=== PATIENT | female | born 1945 | race Caucasian/White ===

== ENCOUNTER 2019-08-16 14:47 | Emergency (ER) | payer MEDICARE ==
[2019-08-16] MEDS ORDERED: Ondansetron 4 MG/2 ML SDV IVPUSH ONE (14:56)
[2019-08-16] MEDS ORDERED: Pantoprazole 40 MG Vial IVPUSH ONE (14:56)
[2019-08-16] MEDS ORDERED: Dextrose 5%-0.9% NaCl 1,000 ML IV SCH (15:00)
--- NOTE | 2019-08-16 15:07 | EDM.PDOC ---
ED HPI GENERAL MEDICAL PROBLEM - General Chief Complaint: Respiratory Problem Stated Complaint: [facility] Time Seen by Provider: 08/16/19 14:55 Source of Information: Reports: Patient History Limitations: Reports: Altered Mental Status (appears to have mild to moderate dementia) - History of Present Illness INITIAL COMMENTS - FREE TEXT/NARRATIVE: 73-year-old female presents to the ED per [facility]. Apparently she is been having recurrent/chronic melena stool or dark black tarry stool for several weeks. He is complaining persistently of epigastric pain and inability eat and knows that she is losing weight. The patient is not able to complete a full sentence due to impaired thought processes and appears to be exhibiting signs and symptoms of early dementia. She is extremely thin from malnutrition and/or concern for possible cancer. States that eating causes epigastric pain and right upper quadrant abdominal pain. Not sure about bowel function. She denies any problems with incontinence of urine. At present she is coughing and is bringing up some yellow-green sputum. Patient denies any hemoptysis. She is febrile at the time of initial assessment in the ED. She used to smoke cigarettes but has not for many years. She did recognize that she is more short of breath on minimal exertion than usual. Paramedics indicate that it looks like she has had melena stool for a lengthy period of time by the looks of the bathroom. Apparently she has been taking Naprosyn 2 tablets in the morning and 2 at bedtime for a lengthy period of time for back pain otherwise she states she cannot walk. Therefore this is likely the cause of her upper GI bleeding and melena stool. Onset: Unknown/Unsure (Is that she has been having melena stool for a couple of weeks off and on.) Onset Date: 08/16/19 (Believes she started to have a fever today but has been coughing for the last 4 days. Cough is becoming more productive with yellow- greenish color) Duration: Day(s):, Getting Worse Location: Reports: Chest, Other (Differential sounding cough yellow-greenish sputum. Again seems to have neurological impairment able to complete a sentence and seems to confabulate information at times. There is no history of previous stroke.) Quality: Reports: Other (Fever chills) Severity: Severe (complete loss of appetite) Improves with: Reports: None Worsens with: Reports: Movement (Appreciates increased shortness of breath on minimal exertion.) Context: Reports: Other. Denies: Activity, Exercise, Lifting, Sick Contact, Trauma Associated Symptoms: Reports: Confusion (Patient cannot finish a sentence. She has difficulty answering questions. She appears to confabulate answers at times.), Cough ( green in color), cough w sputum (Tenuous occurrence), Fever/ Chills (Patient is febrile upon arrival in the ED 38.1.), Headaches, Loss of Appetite, Malaise (Several weeks.), Nausea/Vomiting, Shortness of Breath, Weakness (Nausea but no vomiting. Generalized weakness). 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 (see below) - Related Data Allergies Allergy/AdvReac Type Severity Reaction Status Date / Time Penicillins Allergy Intermediate Facial Verified 08/16/19 14:55 Swelling cephalexin [From Keflex] Allergy Facial Verified 08/16/19 14:55 Swelling erythromycin base Allergy Itching Verified 08/16/19 14:55 acyclovir AdvReac Hallucinati Verified 08/16/19 14:55 ons morphine AdvReac Nausea and Verified 08/16/19 14:55 Vomiting tramadol AdvReac Hallucinati Verified 08/16/19 14:55 ons Home Meds: Home Meds Naproxen Sodium [Aleve] 440 mg PO ASDIRECTED PRN 01/02/19 [History] Past Medical History Respiratory History: Reports: COPD (Diagnosed. Patient used to smoke cigarettes up until March of last year. She has at least a [id number] history.) Gastrointestinal History: Reports: Chronic Constipation (Laxatives as needed for constipation), Gastritis, PUD (He was told in the past that she has had peptic ulcer disease.) Musculoskeletal History: Reports: Arthritis, Back Pain, Chronic, Osteoarthritis , Osteoporosis, Other (See Below) (Multiple compression fractures in her thoracic spine not treated with kyphoplasty.) Social & Family History - Tobacco Use Smoking Status *Q: Former Smoker Tobacco Use Within Last Twelve Months: Cigarettes (In March 2019. Has at least a 48-uwrq-syal history.) - Alcohol Use Alcohol Use History: No - Recreational Drug Use Recreational Drug Use: No Drug Use in Last 12 Months: No - Living Situation & Occupation Living situation: Reports: , Alone, Other (She has 2 daughters here that are looking in on her.) Occupation: Retired ED ROS GENERAL - Review of Systems Review Of Systems: See Below Constitutional: Reports: Fever, Chills, Malaise, Weakness, Fatigue, Decreased Appetite, Other (And apparently was down to 85 pounds in the summer months after multiple compression fractures in her thoracic spine. With a lot of work family members have been able to get her weight up to 91 pounds. She still remains very thin and frail) HEENT: Reports: Glasses Respiratory: Reports: Shortness of Breath, Wheezing, Cough, Sputum (Developed a cough with fever over the last couple of days.). Denies: Pleuritic Chest Pain, Hemoptysis ( Is greenish in color.) Cardiovascular: Reports: Dyspnea on Exertion (Likely), Lightheadedness. Denies : Chest Pain, Blood Pressure Problem, Claudication, Edema, Orthopnea Endocrine: Reports: Fatigue GI/Abdominal: Reports: Abdominal Pain (Cannot eat for the last several weeks due to upper abdominal pain. Eating creates pain mostly in her right upper quadrant of her abdomen), Constipation, Hematochezia, Melena (Stool for the last 2 days at least. Lying in melena stool today and 1 of the daughters also noted some bright red blood with the melena stool.), Stool Incontinence (Is never happened before.). Denies: Hematemesis : Reports: Frequency, Incontinence (Both stress and urge components.) Musculoskeletal: Reports: Shoulder Pain (Devious fall with fracture of her left humerus requiring total shoulder replacement. This occurred 5 years ago), Back Pain (Back pain from multiple vertebral compression fractures not treated with kyphoplasty.), Other (He is fall with fracture right hip has 3 pins in her right hip.) Skin: Reports: Pallor (Radiation collar.) Neurological: Reports: Confusion, Dizziness (Vision seems to have started within the last 3 to 4 days.), Trouble Speaking (Finish a complete sentence but she has no expressive aphasia but seems to have some degree of confabulation or need to make up for things that she cannot remember. This according to her family is something new as well.), Difficulty Walking (Walk alone.), Weakness. Denies: Headache, Numbness, Syncope, Tingling Psychiatric: Reports: Anxiety (Very concerned that if she gets put to sleep ie esthesia that she will not wake up.) Hematologic/Lymphatic: Reports: Anemia (Has been followed by Dr. Phelan in the past and has required blood transfusions.) Immunologic: Reports: No Symptoms ED EXAM, GENERAL - Physical Exam Exam: See Below Exam Limited By: Altered Mental Status (And is unable to complete a full sentence and seems to have developed short-term memory loss. She really does not have expressive aphasia but I sense a degree of confabulation making up for things that she cannot quite remember. Her family indicates that this is a recent new problem within the last week.) General Appearance: Thin (Extremely thin and appears to be), Other ( suffering malnutrition. Is grayish in color. Vital signs show a temperature of 38.1 with a heart rate of 106 at the bedside respiratory it is 20 with O2 sats of 94 % on room air BP 123/65.) Eye Exam: Bilateral Eye: Normal Inspection (Does have moderate bilateral blepharal pallor.), PERRL Ears: Normal TMs Throat/Mouth: Normal Lips, Other (Lung is mildly dry and coated.) Head: Atraumatic, Normocephalic, Other (Neuro no obvious evidence of traumatic head or facial injuries) Neck: Normal Inspection, Supple, Non-Tender, Full Range of Motion. No: Lymphadenopathy (L), Lymphadenopathy (R), Thyromegaly Respiratory/Chest: No Accessory Muscle Use, Respiratory Distress (Mild tachypnea.), Rhonchi (Rhonchi both posterior lung mckinnon with occasional expiratory wheeze.). No: Lungs Clear, Normal Breath Sounds Cardiovascular: No Edema, No Gallop, No JVD, No Murmur, No Rub, Tachycardia, Irregularly Irregular. No: Regular Rate, Rhythm Peripheral Pulses: 1+: Posterior Tibial (L) (Feet are very cool to touch with some acral cyanosis. Pulses are barely palpable in the dorsalis pedis bilaterally. Clinically she has peripheral vascular disease.), Posterior Tibial (R), Dorsalis Pedis (L), Dorsalis Pedis (R) GI/Abdominal: Normal Bowel Sounds, Soft, Non-Tender, No Organomegaly, No Abnormal Bruit, No Mass, Pelvis Stable, Other (Clear for her appendix was removed at that time he has had 1 ) Rectal (Female) Exam: Black Stool, Heme + Stool. No: Hemorrhoids Back Exam: Vertebral Tenderness (The lumbar spine as well as multiple areas mid thoracic spine. Have a dowagers hump), Other (Kyphosis thoracic spine.) Neurological: Alert, Oriented, CN II-XII Intact, Normal Cognition Psychiatric: Anxious, Other (Fused again not able to complete a full sentence) Skin Exam: Warm ( or finish her thought process.), Dry, Intact, Increased Warmth (Is warm to palpation and is febrile.), Other (There is grayish in color. ). No: Normal Color EKG INTERPRETATION EKG Date: 08/16/19 Time: 15:50 Rhythm: Other (Tachycardia) Rate (Beats/Min): 109 (Occasional PACs appreciated.) [place]: Normal P-Wave: Present QRS: Other (His RSR prime wave in V1 and V2 likely normal variant. There is decreased voltage in both the precordial and limb leads compatible with COPD pattern.) ST-T: Other (Nonspecific T wave flattening in V2 V3 leads.) QT: Prolonged (UTC is mildly prolonged.) EKG Interpretation Comments: Abnormal ECG Course - Vital Signs Last Recorded V/S: Last Vital Signs Temp 38.1 C 08/16/19 14:56 Pulse 106 H 08/16/19 14:56 Resp 20 08/16/19 14:56 BP 123/65 08/16/19 14:56 Pulse Ox 94 L 08/16/19 14:56 - Orders/Labs/Meds Orders: Active Orders 24 hr Category Date Time Status EKG Documentation Completion [RC] STAT Care 08/16/19 14:58 Active Insert [place] Catheter [Insert Urinary Catheter] [OM.PC] Care 08/16/19 16:55 Ordered Q24H Urinary Catheter Assessment [RC] ASDIRECTED Care 08/16/19 16:55 Active CULTURE BLOOD [BC] Stat Lab 08/16/19 15:20 Received CULTURE BLOOD [BC] Stat Lab 08/16/19 15:30 Received Acetaminophen [Tylenol] Med 08/16/19 19:49 Active 650 mg PO Q4H PRN Dextrose 5%-0.9% NaCl [Dextrose 5%-Normal Saline] 1,000 Med 08/16/19 15:00 Active ml IV ASDIRECTED Sodium Chloride 0.9% [Normal Saline] 1,000 ml Med 08/16/19 20:15 Active IV ASDIRECTED Sodium Chloride 0.9% [Saline Flush] Med 08/16/19 17:38 Active 10 ml FLUSH ONETIME PRN Blood Culture x2 Reflex Set [OM.PC] Stat Oth 08/16/19 14:59 Ordered Medication Orders Acetaminophen (Tylenol) 650 mg PO Q4H PRN PRN Reason: Pain Dextrose/Sodium Chloride (Dextrose 5%-Normal Saline) 1,000 mls @ 999 mls/hr IV ASDIRECTED [facility] Last Admin: 08/16/19 15:37 Dose: 999 mls/hr Sodium Chloride (Normal Saline) 1,000 mls @ 999 mls/hr IV ASDIRECTED [facility] Last Admin: 08/16/19 20:26 Dose: 999 mls/hr Sodium Chloride (Saline Flush) 10 ml FLUSH ONETIME PRN PRN Reason: Keep Vein Open Last Admin: 08/16/19 17:42 Dose: 10 ml Labs: Laboratory Tests 08/16/19 08/16/19 08/16/19 Range/Units 15:20 15:20 15:20 WBC 25.61 H (3.98-10.04) K/mm3 RBC 3.86 L (3.98-5.22) M/mm3 Hgb 12.3 (11.2-15.7) gm/dl Hct 37.8 (34.1-44.9) % MCV 97.9 H (79.4-94.8) fl MCH 31.9 (25.6-32.2) pg MCHC 32.5 (32.2-35.5) g/dl RDW Std Deviation 47.5 H (36.4-46.3) fL Plt Count 311 (182-369) K/mm3 MPV 9.2 L (9.4-12.3) fl Neutrophils % (Manual) 82 H (40-60) % Band Neutrophils % 8 (0-10) % Lymphocytes % (Manual) 3 L (20-40) % Atypical Lymphs % 0 % Monocytes % (Manual) 7 (2-10) % Eosinophils % (Manual) 0 L (0.7-5.8) % Basophils % (Manual) 0 L (0.1-1.2) Platelet Estimate Adequate RBC Morph Comment Normal ESR (0-20) mm/hr PT 11.9 (9.7-12.0) SECONDS INR 1.10 APTT 30 (22-31) SECONDS Sodium 139 (136-145) mEq/L Potassium 3.6 (3.5-5.1) mEq/L Chloride 103 (98-107) mEq/L Carbon Dioxide 21 (21-32) mEq/L Anion Gap 18.6 H (5-15) BUN 28 H (7-18) mg/dL Creatinine 0.7 (0.55-1.02) mg/dL Est Cr Clr Drug Dosing TNP Estimated GFR (MDRD) > 60 (>60) mL/min BUN/Creatinine Ratio 40.0 H (14-18) Glucose 107 (83-115) mg/dL Lactic Acid (0.4-2.0) mmol/L Calcium 8.8 (8.5-10.1) mg/dL Magnesium 1.6 L (1.8-2.4) mg/dl Total Bilirubin 1.1 H (0.2-1.0) mg/dL GGT 7 (5-55) U/L AST 18 (15-37) U/L ALT 17 (14-59) U/L Alkaline Phosphatase 65 (46-116) U/L Troponin I < 0.017 (0.00-0.056) ng/mL C-Reactive Protein 24.5 H* (<1.0) mg/dL NT-Pro-B Natriuret Pep (0-125) pg/mL Total Protein 7.0 (6.4-8.2) g/dl Albumin 3.3 L (3.4-5.0) g/dl Globulin 3.7 gm/dL Albumin/Globulin Ratio 0.9 L (1-2) Urine Color (Yellow) Urine Appearance (Clear) Urine pH (5.0-8.0) Ur Specific [place] (1.005-1.030) Urine Protein (Negative) Urine Glucose (UA) (Negative) Urine Ketones (Negative) Urine Occult Blood (Negative) Urine Nitrite (Negative) Urine Bilirubin (Negative) Urine Urobilinogen (0.2-1.0) Ur Leukocyte Esterase (Negative) Urine RBC (0-5) /hpf Urine WBC (0-5) /hpf Ur Squamous Epith Cells (0-5) /hpf Urine Bacteria (FEW) /hpf Urine Mucus (FEW) /hpf Blood Type Gel Antibody Screen 08/16/19 08/16/19 08/16/19 Range/Units 15:20 15:20 15:20 WBC (3.98-10.04) K/mm3 RBC (3.98-5.22) M/mm3 Hgb (11.2-15.7) gm/dl Hct (34.1-44.9) % MCV (79.4-94.8) fl MCH (25.6-32.2) pg MCHC (32.2-35.5) g/dl RDW Std Deviation (36.4-46.3) fL Plt Count (182-369) K/mm3 MPV (9.4-12.3) fl Neutrophils % (Manual) (40-60) % Band Neutrophils % (0-10) % Lymphocytes % (Manual) (20-40) % Atypical Lymphs % % Monocytes % (Manual) (2-10) % Eosinophils % (Manual) (0.7-5.8) % Basophils % (Manual) (0.1-1.2) Platelet Estimate RBC Morph Comment ESR 51 H (0-20) mm/hr PT (9.7-12.0) SECONDS INR APTT (22-31) SECONDS Sodium (136-145) mEq/L Potassium (3.5-5.1) mEq/L Chloride (98-107) mEq/L Carbon Dioxide (21-32) mEq/L Anion Gap (5-15) BUN (7-18) mg/dL Creatinine (0.55-1.02) mg/dL Est Cr Clr Drug Dosing Estimated GFR (MDRD) (>60) mL/min BUN/Creatinine Ratio (14-18) Glucose (83-115) mg/dL Lactic Acid 1.6 (0.4-2.0) mmol/L Calcium (8.5-10.1) mg/dL Magnesium (1.8-2.4) mg/dl Total Bilirubin (0.2-1.0) mg/dL GGT (5-55) U/L AST (15-37) U/L ALT (14-59) U/L Alkaline Phosphatase (46-116) U/L Troponin I (0.00-0.056) ng/mL C-Reactive Protein (<1.0) mg/dL NT-Pro-B Natriuret Pep 1318 H (0-125) pg/mL Total Protein (6.4-8.2) g/dl Albumin (3.4-5.0) g/dl Globulin gm/dL Albumin/Globulin Ratio (1-2) Urine Color (Yellow) Urine Appearance (Clear) Urine pH (5.0-8.0) Ur Specific [place] (1.005-1.030) Urine Protein (Negative) Urine Glucose (UA) (Negative) Urine Ketones (Negative) Urine Occult Blood (Negative) Urine Nitrite (Negative) Urine Bilirubin (Negative) Urine Urobilinogen (0.2-1.0) Ur Leukocyte Esterase (Negative) Urine RBC (0-5) /hpf Urine WBC (0-5) /hpf Ur Squamous Epith Cells (0-5) /hpf Urine Bacteria (FEW) /hpf Urine Mucus (FEW) /hpf Blood Type Gel Antibody Screen 08/16/19 08/16/19 Range/Units 15:20 17:00 WBC (3.98-10.04) K/mm3 RBC (3.98-5.22) M/mm3 Hgb (11.2-15.7) gm/dl Hct (34.1-44.9) % MCV (79.4-94.8) fl MCH (25.6-32.2) pg MCHC (32.2-35.5) g/dl RDW Std Deviation (36.4-46.3) fL Plt Count (182-369) K/mm3 MPV (9.4-12.3) fl Neutrophils % (Manual) (40-60) % Band Neutrophils % (0-10) % Lymphocytes % (Manual) (20-40) % Atypical Lymphs % % Monocytes % (Manual) (2-10) % Eosinophils % (Manual) (0.7-5.8) % Basophils % (Manual) (0.1-1.2) Platelet Estimate RBC Morph Comment ESR (0-20) mm/hr PT (9.7-12.0) SECONDS INR APTT (22-31) SECONDS Sodium (136-145) mEq/L Potassium (3.5-5.1) mEq/L Chloride (98-107) mEq/L Carbon Dioxide (21-32) mEq/L Anion Gap (5-15) BUN (7-18) mg/dL Creatinine (0.55-1.02) mg/dL Est Cr Clr Drug Dosing Estimated GFR (MDRD) (>60) mL/min BUN/Creatinine Ratio (14-18) Glucose (83-115) mg/dL Lactic Acid (0.4-2.0) mmol/L Calcium (8.5-10.1) mg/dL Magnesium (1.8-2.4) mg/dl Total Bilirubin (0.2-1.0) mg/dL GGT (5-55) U/L AST (15-37) U/L ALT (14-59) U/L Alkaline Phosphatase (46-116) U/L Troponin I (0.00-0.056) ng/mL C-Reactive Protein (<1.0) mg/dL NT-Pro-B Natriuret Pep (0-125) pg/mL Total Protein (6.4-8.2) g/dl Albumin (3.4-5.0) g/dl Globulin gm/dL Albumin/Globulin Ratio (1-2) Urine Color Yellow (Yellow) Urine Appearance Clear (Clear) Urine pH 6.0 (5.0-8.0) Ur Specific [place] 1.025 (1.005-1.030) Urine Protein 1+ H (Negative) Urine Glucose (UA) 2+ H (Negative) Urine Ketones Negative (Negative) Urine Occult Blood Negative (Negative) Urine Nitrite Negative (Negative) Urine Bilirubin Negative (Negative) Urine Urobilinogen 1.0 (0.2-1.0) Ur Leukocyte Esterase Negative (Negative) Urine RBC 0-5 (0-5) /hpf Urine WBC 0-5 (0-5) /hpf Ur Squamous Epith Cells 0-5 (0-5) /hpf Urine Bacteria Few (FEW) /hpf Urine Mucus Few (FEW) /hpf Blood Type A POSITIVE Gel Antibody Screen Negative Meds: Medications Generic Name Dose Route Start Last Admin Trade Name Freq PRN Reason Stop Dose Admin Acetaminophen 650 mg 08/16/19 19:49 Tylenol PO Q4H PRN Pain Dextrose/Sodium Chloride 1,000 mls @ 999 mls/hr 08/16/19 15:00 08/16/19 15:37 Dextrose 5%-Normal Saline IV 999 mls/hr ASDIRECTED [facility] Administration Sodium Chloride 1,000 mls @ 999 mls/hr 08/16/19 20:15 08/16/19 20:26 Normal Saline IV 999 mls/hr ASDIRECTED J[facility] Administration Sodium Chloride 10 ml 08/16/19 17:38 08/16/19 17:42 Saline Flush FLUSH 10 ml ONETIME PRN Administration Keep Vein Open Discontinued Medications Generic Name Dose Route Start Last Admin Trade Name Fernandezq PRN Reason Stop Dose Admin Acetaminophen 650 mg 08/16/19 15:41 08/16/19 16:00 Tylenol PO 08/16/19 15:42 Not Given ONETIME ONE Acetaminophen 650 mg 08/16/19 15:59 08/16/19 16:04 Tylenol PO 08/16/19 16:00 650 mg ONETIME ONE Administration Acetaminophen 650 mg 08/16/19 20:34 08/16/19 20:38 Tylenol PO 08/16/19 20:35 650 mg ONETIME ONE Administration Diatrizoate Meglum/Diatrizoate Sod 40 ml 08/16/19 17:42 08/16/19 17:43 Gastrografin 37% PO 08/16/19 17:43 40 ml ONETIME ONE Administration Levofloxacin/Dextrose 750 mg/ 150 mls @ 100 mls/hr 08/16/19 16:17 08/16/19 16 :30 Premix IV 08/16/19 17:46 100 mls/hr ONETIME ONE Administration Iopamidol 100 ml 08/16/19 17:38 08/16/19 17:42 Isovue-300 (61%) IVPUSH 08/16/19 17:39 100 ml ONETIME ONE Administration Ondansetron HCl 4 mg 08/16/19 14:56 08/16/19 15:30 Zofran IVPUSH 08/16/19 14:57 4 mg ONETIME ONE Administration Oseltamivir Phosphate 75 mg 08/16/19 19:48 08/16/19 20:38 Tamiflu PO 08/16/19 19:49 75 mg ONETIME ONE Administration Pantoprazole Sodium 40 mg 08/16/19 14:56 08/16/19 15:34 Protonix Iv IVPUSH 08/16/19 14:57 40 mg ONETIME ONE Administration - Radiology Interpretation Free Text/Narrative:: [place] 3-year-old female brought to the hospital by [facility] at the request of her daughters. They found her lying in melena stool with some bright red blood present. She is altered level of consciousness in terms that she seems to be confused and cannot complete a full sentence due to loss of thought process and seems to have some degree of confabulation. Whether this represents old problems or developing dementia versus acute delirium. She does not have an expressive aphasia. She may be slightly delirious as she her temperature is 102 degrees. Its to a cough that is productive of yellow-greenish sputum. She used to smoke up until March of last year and has known COPD. Does not use home oxygen therapy. Apparently she has been having melena stool off and on for at least 2 to 3 days. She takes Naprosyn 2 tablets morning and night for back pain and likely has a upper GI blood loss site. She has been seen by Dr. Reddy inventory control/shipping receiving in [place] in the past and treated I believe for iron deficiency anemia with iron dextran intravenously and previous blood transfusions. It is unclear of the timeframe of this. At present I am going to do a CT head to make sure that she has not had an intracerebral event or a fall with an occult subdural. A chest x-ray will be done to rule out pneumonia. She cannot eat due to persistent upper abdominal pain concerning for possible malignancy due to the fact that she is very thin. She appears to have have an upper GI bleeding source with melena stool with some bright red blood appreciated today as well by 1 of her daughters. She does appear anemic with blepharal pallor and pallor in her palms of her hands. She will be typed and screened. Septic work-up will be carried out. Given Tylenol in liquid form for fever relief. Zofran 4 mg IV. IV will be D5 normal saline at open. She has not eaten much for the last couple of days. Then attempt a CT of the abdomen and pelvis with oral contrast. It will depend on her renal function as to whether or not we can pursue IV contrast as well. - Re-Assessments/Exams Free Text/Narrative Re-Assessment/Exam: 08/16/19 16:16 The chest x-ray done portably reveals that she has had a Lt total shoulder replacement. She does have hyperinflated lung mckinnon with prominent pulmonary arteries particularly noted on the left side. There are some chronic scarring in the right lung base. Lungs are hyperinflated with COPD emphysema pattern. Cardiac silhouette is normal. A large hiatal hernia evident. She is rotated slightly to the right. 08/16/19 16:18 Hematology is partially back revealing a elevated white count to 25.61. The differential is pending. Hemoglobin is 12.3 with a hematocrit of 37.8. MCV is mildly elevated at 97.9. Platelet count is 311,000. Urine is for developing pneumonia although this is not yet evident on plain films. She is been producing greenish-yellow phlegm and has high fever. Will be treated with Levaquin 750 mg IV as blood cultures x2 have been obtained. Lactic acid is currently 1.6 08/16/19 17:07 Differential l is now back on white count of 25.61. Neutrophil count is 82% with 8% bandemia. Sed rate is 51. PT is 11.9 with an INR of 1.10. PTT is 30. Sodium is 139 with a potassium of 3.6. Chloride 103 with a bicarb of 21. Anion gap is elevated at 18.6. BUN is 28 with a creatinine of 0.7. GFR remains greater than 60. Glucose 107. Lactic acid 1.6. Calcium is 8.8. Magnesium slightly low at 1.6. Bilirubin is slightly elevated at 1.1. Liver function is otherwise normal. Troponin I is less than 0.017. C-reactive protein is elevated at 24.5. BNP elevated at 1318. Total protein is 7.0 with an albumin fraction of 3.3. Awaiting CT of her head and abdomen and pelvis with oral and IV contrast. 08/16/19 17:23 She is influenza B positive. 08/16/19 18:27 CT of the head reveals advanced degenerative changes with markedly dilated lateral ventricles and prominent sulci. There is diffuse small vessel ischemic changes in both basal ganglia without any obvious lacunar infarcts. There is no mass-effect or evidence of metastatic disease. CT of the abdomen reveals mild cardiomegaly. There is a very large hiatal hernia with at least 50% of the stomach in the retrocardiac space. His lung bases show interstitial change within the posterior right lung base most likely representing fibrosis. CT of the abdomen reveals the liver to be within normal limits showing no intraductal dilatation. Gallladder is not well- defined contains no obvious calcified gallstones. Adrenal glands show no nodules. Pancreas within normal limits. Kidneys are present and appear to be normal in size with full small cortical cysts are seen within the kidneys. Delayed images show contrast excretion into the ureters as well as the bladder. There is moderate calcification of the abdominal aorta all the way down to the bifurcation. The small bowel filled fairly well with contrast material and does not show any obvious abnormalities. Retroperitoneal adenopathy noted. No mesenteric abnormalities noted. Mass or adenopathy is seen. Appendix is not visualized with any degree of certainty. Mild diverticulosis is noted within the sigmoid colon without findings of diverticulitis. Bone window settings showed numerous compression fractures these appear to be old. There are 3 cannulated screws noted within the left hip fixing an old healed fracture. There is no free fluid in the pelvis. 08/16/19 20:13 BP has fallen to 73/48 and confirmed on three further attempts . A liter of warmed normal saline intravenously bolus. 08/16/19 21:06 due to 500 mL normal saline bolus and BP improved to the 89/49. Reports her blood pressure usually is 95-100 systolic. Will continue IV normal saline at 500 mils an hour in spite of the fact that she is in low-grade heart failure. Pressure falls again she may be bleeding internally. Need inotropic support with levophed. 08/16/19 21:39 and a contrast due to poor renal function she cannot tolerate IV contrast. Appears to be somewhat enlarged. Visualized lung bases so nothing acute. Noncontrast appearance of the liver shows no focal abnormality. Spleen shows no discrete abnormality. Gallbladder contains a single calcified gallstone measuring 1.0 cm. No discrete adrenal nodules are seen. Small lymph node is noted within the upper right mediastinum measuring 1.4 cm in size. No other retroperitoneal lymph nodes are seen and this is likely incidental. Multiple medullary calcifications are seen within both kidneys no hydronephrosis is seen of either kidney although the right kidney is markedly enlarged compared to the left. Perinephric stranding particularly around the right kidney compatible with a pyelonephritis and perhaps obstructive uropathy. There is minimal perinephric stranding on the left side. Large umbilical hernia is seen containing fat with a wide pitting through the abdominal wall. It is easily reducible. Diverticuli are seen within the sigmoid colon. No inflammatory changes are evident to suggest diverticulitis. Artifact is noted within the pelvis from bilateral hip prostheses. No free fluid or inflammatory changes appreciated. There is moderately large hiatal hernia appreciated pancreas shows most no discrete abnormality appendix is felt to be visualized is normal in size. T of the lumbar spine there is diffuse disc space narrowing and vacuum phenomena seen throughout the entire lumbar spine. Posterior disc space narrowing is seen at L3-L4 level. Old limbus type vertebra is noted within anterior and superior endplate of L3. Spinal listhesis is noted at L4-L5 level measuring about 7.7 m which is due to severe degenerative apophyseal change. Diffuse degenerative apophyseal changes also seen within other levels of the lumbar spine no acute fractures are identified multiple levels of neural foraminal stenosis are appreciated. Central canal stenosis is noted at L4-L5.. Slight deformity of the thecal sac noted at L2-3 due to degenerative apophyseal changes as well. No other levels of central canal stenosis are appreciated. Of note the CTs were sent to 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 in [place] due to identified neurogenic bladder with obstructive uropathy associated with acute febrile illness x5 days with Reiger's and chills. CT reveals significant perinephric stranding around the right kidney and right mild hydronephrosis. Left kidney is smaller in dimension and questions function. He does have minimal perinephric stranding. Patient mentions that she has numbness perianally from sacral to 3 and 4 dermatomes and [id number] down her legs gradually worsening over the last [address] of the lumbar spine reveals advanced degenerative arthritis with evidence of cord compression at L4-L5 level. Requires further investigation. Other findings were that of a fairly large hiatal hernia. A solitary gallstone a large umbilical hernia which is quite evident clinically with a wide-based defect in the abdominal wall and multiple stones within both renal parenchyma. No obstructive uropathy from a stone is identified Polk catheter has been placed to reduce obstructive uropathy. Patient to be transferred to the [facility] per [facility] due to lack of ambulance transport ability and our hospital being on diversion. Sepsis Event Note - Focused Exam Vital Signs: Vital Signs Temp Pulse Resp BP Pulse Ox 08/16/19 14:56 38.1 C 106 H 20 123/65 94 L Date Exam was Performed: 08/16/19 Time Exam was Performed: 21:39 - My Orders Last 24 Hours: My Active Orders 08/16/19 14:58 EKG Documentation Completion [RC] STAT 08/16/19 14:59 Blood Culture x2 Reflex Set [OM.PC] Stat 08/16/19 15:00 Dextrose 5%-0.9% NaCl [Dextrose 5%-Normal Saline] 1,000 ml IV ASDIRECTED 08/16/19 15:20 CULTURE BLOOD [BC] Stat 08/16/19 15:30 CULTURE BLOOD [BC] Stat 08/16/19 16:55 Insert Polk Catheter [Insert Urinary Catheter] [OM.PC] Q24H Urinary Catheter Assessment [RC] ASDIRECTED 08/16/19 17:38 Sodium Chloride 0.9% [Saline Flush] 10 ml FLUSH ONETIME PRN 08/16/19 19:49 Acetaminophen [Tylenol] 650 mg PO Q4H PRN 08/16/19 20:15 Sodium Chloride 0.9% [Normal Saline] 1,000 ml IV ASDIRECTED - Assessment/Plan Last 24 Hours: My Active Orders 08/16/19 14:58 EKG Documentation Completion [RC] STAT 08/16/19 14:59 Blood Culture x2 Reflex Set [OM.PC] Stat 08/16/19 15:00 Dextrose 5%-0.9% NaCl [Dextrose 5%-Normal Saline] 1,000 ml IV ASDIRECTED 08/16/19 15:20 CULTURE BLOOD [BC] Stat 08/16/19 15:30 CULTURE BLOOD [BC] Stat 08/16/19 16:55 Insert Polk Catheter [Insert Urinary Catheter] [OM.PC] Q24H Urinary Catheter Assessment [RC] ASDIRECTED 08/16/19 17:38 Sodium Chloride 0.9% [Saline Flush] 10 ml FLUSH ONETIME PRN 08/16/19 19:49 Acetaminophen [Tylenol] 650 mg PO Q4H PRN 08/16/19 20:15 Sodium Chloride 0.9% [Normal Saline] 1,000 ml IV ASDIRECTED
[2019-08-16] MEDS ORDERED: Acetaminophen 325 MG Tab PO ONE (15:41)
--- NOTE | 2019-08-16 15:47 | CR ---
Chest: Portable view of the chest was obtained. Comparison: No prior chest x-ray. Moderate sized hiatal hernia is noted. Heart size is normal. Lungs show no acute parenchymal change. Left shoulder prosthesis is seen. Bony structures are osteopenic. Impression: 1. Findings as noted above. 2. Nothing acute is identified on portable chest x-ray. Diagnostic code #2 This report was dictated in [place] Standard Time
[2019-08-16] MEDS ORDERED: Acetaminophen 325 MG/10.15 ML ML PO ONE ×2 (15:59→20:34)
[2019-08-16] MEDS ORDERED: Levofloxacin/Dextrose 5%-Water 750 MG in Premix Bag 1 BAG IV ONE (16:17)
[2019-08-16] MEDS ORDERED: Iopamidol 612 MG/ML 100 ML Bottle IVPUSH ONE (17:38)
[2019-08-16] MEDS ORDERED: Sodium Chloride 0.9% 10 ML Syringe FLUSH PRN (17:38)
[2019-08-16] MEDS ORDERED: Diatrizoate Meglumine/Diatrizoate Sodium 37% 120 ML Bottle PO ONE (17:42)
--- NOTE | 2019-08-16 18:33 | CT ---
Head CT Technique: Multiple axial sections through the brain were obtained. Intravenous contrast was not utilized. Comparison: No prior intracranial imaging is available. Findings: Ventricles along with basal cisterns and sulci over the convexities are moderately prominent. Diminished density is noted within portions of the periventricular white matter which is compatible with small vessel ischemic demyelination change. No other abnormal parenchymal densities are seen. No evidence of intracranial hemorrhage. No midline shift or mass effect is seen. Mastoid sinuses showed nothing acute. Visualized paranasal sinuses show nothing acute. No acute calvarial abnormality is appreciated. Impression: 1. Senescent change as described above. 2. No acute intracranial abnormality is identified. Diagnostic code #2 Study was dictated in [place] Standard Time
--- NOTE | 2019-08-16 18:33 | CT ---
CT abdomen and pelvis Technique: Multiple axial sections were obtained from above the dome of the diaphragm inferiorly through the pubic symphysis. Intravenous and oral contrast was utilized. Delayed images also were obtained through the abdomen and pelvis. Comparison: No prior abdominal imaging. Findings: Visualized lung bases shows interstitial change within the posterior right lung base most likely representing fibrosis. Liver shows no focal parenchymal abnormality. Hiatal hernia is seen which is moderately large. Spleen appears normal. Kidneys show symmetric contrast enhancement. Multiple small cortical cysts are seen within the kidneys. Delayed images shows contrast excretion into the ureters as well as bladder. Gallbladder contains no calcified gallstones. Adrenal glands show no nodule. Pancreas is within normal limits. Aorta shows atherosclerotic change without aneurysm. Atherosclerotic change continues into the iliac vessels. No retroperitoneal adenopathy or mesenteric abnormalities are seen. No pelvic mass or adenopathy is seen. Appendix is not visualized with certainty. Mild diverticulosis is noted within the sigmoid colon without findings of diverticulitis. Bone window settings were reviewed which shows numerous compression fractures. These are most likely old. 3 cannulated screws are noted within the left hip affixing an old healed fracture. Impression: 1. Interstitial fibrosis within the right lung base. 2. Fairly large hiatal hernia. 3. Other findings which are believed to be incidental as noted above. Nothing acute is appreciated on CT study of the abdomen and pelvis. Diagnostic code #2 Study was dictated in [place] Standard Time
[2019-08-16] MEDS ORDERED: Oseltamivir 75 MG Cap PO ONE (19:48)
[2019-08-16] MEDS ORDERED: Acetaminophen 325 MG Tab PO PRN (19:49)
[2019-08-16] MEDS ORDERED: Sodium Chloride 0.9% 1,000 ML IV SCH (20:15)
[2019-08-16] MEDS ORDERED: Norepinephrine 4 MG in Dextrose 5% in Water 246 ML IV SCH ×2 (21:45)
== END 2019-08-16 22:15 ==
LOC: JD.ED 14:47
DX: N12 Tubulo-interstitial nephritis, not specified as acute or chronic (principal); M47.26 Other spondylosis with radiculopathy, lumbar region; N13.9 Obstructive and reflux uropathy, unspecified; N31.9 Neuromuscular dysfunction of bladder, unspecified; N18.3 Chronic kidney disease, stage 3 (moderate); J43.9 Emphysema, unspecified; Z88.0 Allergy status to penicillin; Z88.1 Allergy status to other antibiotic agents; Z88.5 Allergy status to narcotic agent; Z87.891 Personal history of nicotine dependence
CPT/HCPCS: 36415; 70450; 71045; 74177; 80053; 81001; 82977; 83605; 83735; 83880; 84484; 85007; 85027; 85610; 85652; 85730; 86140; 86850; 86900; 86901; 87040; 87804; 93005; 96361; 96365; 96366; 96367; 96375; 99285; A9270; C9113; J1956; J2405; J7030; J7042; J7060; Q9963; Q9967; 93010

== ENCOUNTER 2020-03-21 14:50 | Emergency (ER) | payer MEDICARE, MEDICAID ==
--- NOTE | 2020-03-21 15:52 | CR ---
Pelvis and right hip: AP view of the pelvis was obtained as well as AP and frog-leg lateral views right hip. Comparison: No prior pelvis Study. 2 cannulated screws are noted within the left hip. Joint spaces are preserved within both hips. Sacroiliac joints appear within normal limits. Slight osteopenia is present. Impression: 1. Findings as noted above. 2. Nothing acute is seen on AP pelvis or 2 view right hip exam. Diagnostic code #2 Study was dictated in MDT
[2020-03-21] MEDS ORDERED: Acetaminophen/HYDROcodone 325-5 MG Tab PO ONE (16:13)
--- NOTE | 2020-03-21 16:26 | EDM.PDOC ---
ED HPI GENERAL MEDICAL PROBLEM - General Chief Complaint: Lower Extremity Injury/Pain Stated Complaint: WEAKNESS Time Seen by Provider: 03/21/20 15:19 Source of Information: Reports: Patient, RN Notes Reviewed History Limitations: Reports: No Limitations - History of Present Illness INITIAL COMMENTS - FREE TEXT/NARRATIVE: Patient is a 74-year-old female who presents to the ED for the evaluation of her right hip pain. Patient notes that she fell on March 18, 2020 in her home, and she was seen in the ER in [facility], but her x-ray was obscured by stool, so her bones were not well visualized. She states that everything was kind going okay, but she developed pain into her right hip today, so much so that she could not walk. She did require quite a bit of help from her wheelchair to the ER cot at time of triage. She was also given MiraLAX for the constipation, but she states this was not productive. Her primary care provider is Linda Mathis. She states that she did have a leftover prescription for [place] from a previous injury, and states this did seem to help her quite a bit with the pain. She is not having any numbness or tingling into her toes, she is not complaining of any fever/chills, cough/shortness of breath. Right Hip Pain Score (Numeric/FACES): 5 - Related Data Allergies Allergy/AdvReac Type Severity Reaction Status Date / Time Penicillins Allergy Intermediate Facial Verified 03/21/20 15:00 Swelling cephalexin [From Keflex] Allergy Facial Verified 03/21/20 15:00 Swelling erythromycin base Allergy Itching Verified 03/21/20 15:00 acyclovir AdvReac Hallucinati Verified 03/21/20 15:00 ons morphine AdvReac Nausea and Verified 03/21/20 15:00 Vomiting tramadol AdvReac Hallucinati Verified 03/21/20 15:00 ons Home Meds: Home Meds Naproxen Sodium [Aleve] 440 mg PO ASDIRECTED PRN 01/02/19 [History] Hydrocodone/Acetaminophen [Hydrocodone-Acetamin 5-325 mg] 1 each PO Q6H PRN #20 tablet 03/21/20 [Rx] Past Medical History HEENT History: Reports: Impaired Vision Other HEENT History: wears eyeglasses. 2 caps. Cardiovascular History: Reports: Heart Murmur, Other (See Below) Other Cardiovascular History: mitral valve regurgitation. Respiratory History: Reports: COPD Gastrointestinal History: Reports: Chronic Constipation, Gastritis, PUD Other Gastrointestinal History: esophageal varicies. Genitourinary History: Reports: UTI, Recurrent PARAPLANNER History: Reports: Musculoskeletal History: Reports: Arthritis, Back Pain, Chronic, Osteoarthritis, Osteoporosis, Other (See Below) Other Musculoskeletal History: vertebral fx's. Neurological History: Reports: Concussion Psychiatric History: Reports: Depression Endocrine/Metabolic History: Reports: Osteoporosis Hematologic History: Reports: Anemia, Blood Transfusion(s) - Infectious Disease History Infectious Disease History: Reports: Chicken Pox, Measles, Mumps, Shingles - Past Surgical History HEENT Surgical History: Reports: Tonsillectomy Female Surgical History: Reports: Section Social & Family History - Family History Family Medical History: Noncontributory - Tobacco Use Smoking Status *Q: Former Smoker Years of Tobacco use: 50 Packs/Tins Daily: 1.5 Used Tobacco, but Quit: Yes Month/Year Tobacco Last Used: 06/2017 Second Hand Smoke Exposure: No - Caffeine Use Caffeine Use: Reports: None - Recreational Drug Use Recreational Drug Use: No - Living Situation & Occupation Living situation: Reports: , Alone, Other (She has 2 daughters here that are looking in on her.) Occupation: Retired Review of Systems - Review of Systems Review Of Systems: Comprehensive ROS is negative, except as noted in HPI. ED EXAM, GENERAL - Physical Exam Exam: See Below Exam Limited By: No Limitations General Appearance: Alert, WD/WN, No Apparent Distress Respiratory/Chest: No Respiratory Distress, Lungs Clear, Normal Breath Sounds, No Accessory Muscle Use, Chest Non-Tender Cardiovascular: Normal Peripheral Pulses, Regular Rate, Rhythm, No Murmur Peripheral Pulses: 2+: Dorsalis Pedis (L), Dorsalis Pedis (R) Extremities: Normal Inspection, Normal Capillary Refill, Limited Range of Motion (of right leg d/t pain in right hip) Neurological: Alert, Oriented, CN II-XII Intact, Normal Cognition, No Motor/Sensory Deficits Psychiatric: Normal Affect, Normal Mood Skin Exam: Warm, Dry, Intact, Normal Color, No Rash Course - Vital Signs Last Recorded V/S: Last Vital Signs Temp 97.6 F 03/21/20 15:01 Pulse 98 03/21/20 15:01 Resp 14 03/21/20 15:01 BP 113/63 03/21/20 15:01 Pulse Ox 98 03/21/20 15:01 - Orders/Labs/Meds Meds: Medications Discontinued Medications Generic Name Dose Route Start Last Admin Trade Name Marlena PRN Reason Stop Dose Admin Hydrocodone Bitart/Acetaminophen 2 tab 03/21/20 16:13 [place] 325-5 Mg PO 03/21/20 16:14 ONETIME ONE - Re-Assessments/Exams Free Text/Narrative Re-Assessment/Exam: 03/21/20 16:26 Patient presents to the ED for evaluation of her right hip injury. X-rays were taken and demonstrate no signs of acute fracture within the right hip. Patient will be given a prescription of [place], along with 2 tablets to start in this ER visit. She will be directed follow-up with Dr. Null for further management, and follow-up with her primary care provider, Dr. Linda Mathis as well for continuing pain management. Departure - Departure Time of Disposition: 16:26 Disposition: Home, Self-Care 01 Condition: Good Clinical Impression: Right hip pain - Discharge Information *PRESCRIPTION DRUG MONITORING PROGRAM REVIEWED*: Yes *COPY OF PRESCRIPTION DRUG MONITORING REPORT IN PATIENT BEATRIZ: No Prescriptions: Hydrocodone/Acetaminophen [Hydrocodone-Acetamin 5-325 mg] 1 each PO Q6H PRN #20 tablet PRN Reason: Pain Instructions: Hip Pain, Pain Medicine Instructions, [id number] Additional Instructions: You were seen in the ER today for your right hip pain. X-rays were taken, and demonstrated no sign of an acute fracture or other bony abnormalities. You may take 500 mg Tylenol or 600 mg ibuprofen every 6 hours as needed for further pain relief. Do not exceed 4000 mg Tylenol or 3 200 mg ibuprofen in a 24-hour time span. You were given a prescription for a strong pain medication, hydrocodone/acetaminophen 5/325 mg, please take 1 tab every 6 hours as needed for pain not relieved by Tylenol or ibuprofen alone. Please note this medication does contain Tylenol in it, so do not take more than 4000 mg in a 24- hour time span. These medications can be addictive, so please take as few as possible to achieve adequate pain control. These meds can also be quite constipating, recommend that you increase your oral fluid intake and take a stool softener like MiraLAX while taking these medications. Do not drive while taking this medication. Recommend you follow-up with your regular provider, Linda Mathis for continuing pain relief, and that you also follow-up with Dr. Null, senior design engineering specialist for evaluation of your right hip. Please call his office at [phone], to get an appointment, he does make trips to [place], [place], so tell his office that you live there to try to coordinate a follow-up appointment with him down there. Please return to the ER at any time if symptoms change or worsen. Sepsis Event Note (ED) - Evaluation Sepsis Screening Result: No Definite Risk - Focused Exam Vital Signs: Vital Signs Temp Pulse Resp BP Pulse Ox 03/21/20 15:01 97.6 F 98 14 113/63 98
== END 2020-03-21 17:00 | disposition home or self-care (01) ==
LOC: JD.ED 14:50
DX: M25.551 Pain in right hip (principal); J44.9 Chronic obstructive pulmonary disease, unspecified; Z88.0 Allergy status to penicillin; Z88.1 Allergy status to other antibiotic agents; Z88.5 Allergy status to narcotic agent; Z87.891 Personal history of nicotine dependence
CPT/HCPCS: 73502; 99283; A9270